=== PATIENT | female | born 1940 | race Caucasian/White ===

== ENCOUNTER 2019-06-04 18:25 | Inpatient (IN) | payer MEDICARE ==
[~2019-06-04] VITALS: Ht 162.6 cm; Wt 56.2 kg
[2019-06-04] MEDS ORDERED: ONDANSETRON 4 MG/2 ML VIAL IV ONE (19:00)
[2019-06-04] MEDS ORDERED: MECLIZINE HCL 25 MG TABLET PO ONE (19:00)
[2019-06-04 19:06] LABS: BASOPHILS # (AUTO) 0.1 K/uL (0.0-8.0); BASOPHILS % (AUTO) 0.8 % (0.0-2.0); EOSINOPHILS # (AUTO) 0.1 K/uL (0.0-0.7); EOSINOPHILS % (AUTO) 1.6 % (0.0-7.0); HEMATOCRIT 39.5 % (31.2-41.9); HEMOGLOBIN 12.9 g/dL (10.9-14.3); LYMPHOCYTES # (AUTO) 1.6 K/uL (20.0-40.0); LYMPHOCYTES % (AUTO) 19.9 % (20.5-51.5); MEAN CORPUSCULAR HEMOGLOBIN 29.4 uug (24.7-32.8); MEAN CORPUSCULAR HGB CONC 33 g/dL (32.3-35.6); MEAN CORPUSCULAR VOLUME 89.8 fL (75.5-95.3); MONOCYTES # (AUTO) 0.4 K/uL (2.0-10.0); MONOCYTES % (AUTO) 5.4 % (0.0-11.0); NEUTROPHILS # (AUTO) 5.8 K/uL (1.8-8.9); NEUTROPHILS % (AUTO) 72.3 % (38.5-71.5); PLATELET COUNT (AUTO) 205 K/uL (179-408)
[2019-06-04] MEDS ORDERED: ONDANSETRON 4 MG/2 ML VIAL ONE (19:07)
[2019-06-04] MEDS ORDERED: MECLIZINE HCL 25 MG TABLET ONE (19:07)
[2019-06-04 19:16] LABS: CREATININE 1.2 mg/dL (0.6-1.3); POTASSIUM 4.2 mmol/L (3.5-5.1)
[2019-06-04] MEDS ORDERED: ALPRAZOLAM 0.25 MG TABLET PO ONE (20:30)
[2019-06-04] MEDS ORDERED: ALPRAZOLAM 0.25 MG TABLET ONE (20:39)
[2019-06-04] MEDS ORDERED: LORA0.5T PO (22:02)
[2019-06-04] MEDS ORDERED: ATOR40TA PO (22:02)
[2019-06-04] MEDS ORDERED: LOSA50TA39 PO (22:02)
[2019-06-04] MEDS ORDERED: PROP20TA7 PO (22:02)
[2019-06-04] MEDS ORDERED: IV NS 1000 ML 1,000 ML IV PRN (22:28)
[2019-06-04 22:30] VITALS: BP 191/63
[2019-06-04] MEDS ORDERED: ZOLPIDEM 5 MG TABLET PO PRN (22:30)
[2019-06-04] MEDS ORDERED: ATORVASTATIN 40 MG TABLET PO SCH (22:30)
[2019-06-04] MEDS ORDERED: ONDANSETRON 4 MG/2 ML VIAL IV PRN (22:30)
[2019-06-04] MEDS ORDERED: ACETAMINOPHEN 325 MG TABLET PO PRN (22:30)
[2019-06-04] MEDS ORDERED: LORAZEPAM 0.5 MG TABLET PO PRN (22:30)
[2019-06-04] MEDS ORDERED: HYDROCODONE/APAP 5-325MG TABLET PO PRN (22:30)
[2019-06-04] MEDS ORDERED: MAGNESIUM HYDROXIDE 30 ML LIQUID UDC PO PRN (22:30)
[2019-06-04] MEDS ORDERED: DIAZEPAM 5 MG TABLET PO ONE (23:00)
[2019-06-04] MEDS: PROPRANOLOL HCL 20 MG TABLET PO SCH (23:15)
[2019-06-05 00:48] VITALS: BP 138/54
[2019-06-05 04:00] VITALS: BP 146/56
[2019-06-05 06:52] LABS: BASOPHILS % (AUTO) 0.6 % (0.0-2.0); EOSINOPHILS # (AUTO) 0.1 K/uL (0.0-0.7); EOSINOPHILS % (AUTO) 1.9 % (0.0-7.0); HEMATOCRIT 36.4 % (31.2-41.9); HEMOGLOBIN 12.2 g/dL (10.9-14.3); LYMPHOCYTES # (AUTO) 1.9 K/uL (20.0-40.0); LYMPHOCYTES % (AUTO) 30.9 % (20.5-51.5); MEAN CORPUSCULAR HEMOGLOBIN 29.5 uug (24.7-32.8); MEAN CORPUSCULAR HGB CONC 34 g/dL (32.3-35.6); MEAN CORPUSCULAR VOLUME 88.2 fL (75.5-95.3); MONOCYTES # (AUTO) 0.4 K/uL (2.0-10.0); MONOCYTES % (AUTO) 6.3 % (0.0-11.0); NEUTROPHILS # (AUTO) 3.7 K/uL (1.8-8.9); NEUTROPHILS % (AUTO) 60.3 % (38.5-71.5); PLATELET COUNT (AUTO) 197 K/uL (179-408); RED BLOOD CELL COUNT(AUTO) 4.12 MIL/uL (3.63-4.92); WHITE BLOOD COUNT (AUTO) 6.2 K/uL (3.8-11.8)
[2019-06-05 07:07] LABS: CARBON DIOXIDE 27 mmol/L (21-32); CHLORIDE 107 mmol/L (98-107); CHOLESTEROL 152 mg/dL (<200); CREATININE 1.3 mg/dL (0.6-1.3); GLUCOSE 125 mg/dL (74-106); HDL CHOLESTEROL 39 mg/dL (40-60); MAGNESIUM 1.8 mg/dL (1.8-2.4); PHOSPHOROUS 3.3 mg/dL (2.5-4.9); TRIGLYCERIDES 117 MG/DL (30-150); UREA NITROGEN, BLOOD 16 mg/dL (7-18)
[2019-06-05 07:14] LABS: THYROID STIMULATING HORMONE 1.092 mIU/mL (0.358-3.740)
[2019-06-05] MEDS ORDERED: ATORVASTATIN 40 MG TABLET PO SCH (09:00)
[2019-06-05] MEDS ORDERED: LOSARTAN POTASSIUM 50 MG TABLET PO SCH (09:00)
[2019-06-05] MEDS: DIAZEPAM 5 MG TABLET PO SCH ×2 (09:07→17:00)
[2019-06-05] MEDS: PROPRANOLOL HCL 20 MG TABLET PO SCH ×2 (09:10→17:00)
[2019-06-05 11:02] VITALS: BP 114/55
[2019-06-05 15:14] VITALS: BP 129/54
[2019-06-05 17:00] VITALS: BP 129/57
== END 2019-06-05 18:05 | disposition home or self-care (01) | DRG 149 ==
LOC: ER 18:25 → TELE3 22:25
DX: H81.10 Benign paroxysmal vertigo, unspecified ear (principal); I67.82 Cerebral ischemia; G25.0 Essential tremor; F41.9 Anxiety disorder, unspecified; E78.5 Hyperlipidemia, unspecified; I10 Essential (primary) hypertension; Z90.710 Acquired absence of both cervix and uterus; Z79.899 Other long term (current) drug therapy
CPT/HCPCS: 36415; 70450; 83735; 84100; 84443; 85025; 93005; A4663; G0378; J2405; J7030; J8597